=== PATIENT | male | born 1940 | race African-American/Black ===

== ENCOUNTER 2021-08-29 09:02 | Inpatient (IN) | payer OTHER ==
[~2021-08-29] VITALS: Ht 190.5 cm; Wt 91.9 kg
[2021-08-29 10:09] LABS: BASOPHILS % 0.3 % (0.0-2.0); EOSINOPHILS % 0.4 % (0.0-5.0); HEMATOCRIT. 41.6 % (42.0-52.0); HEMOGLOBIN. 14.2 g/dL (14.0-18.0); LYMPHOCYTES % 9.1 % (20.0-50.0); MEAN CORPUSCULAR HEMOGLOBIN 30.2 pg (28.0-32.0); MEAN CORPUSCULAR VOLUME 88.6 fL (80.0-94.0); MEAN PLATELET VOLUME 8.7 fl (7.4-10.4); MONOCYTES % 11.4 % (2.0-8.0); NEUTROPHILS % 78.8 % (40.0-76.0); PLATELET 187 x1000/uL (130-400); RED CELL DISTRIBUTION WIDTH 16.2 % (11.6-14.6)
[2021-08-29 10:17] LABS: CHLORIDE 97 mEq/L (98-107)
[2021-08-29 10:29] LABS: ETHANOL BLOOD < 10 mg/dL
[2021-08-29 10:37] LABS: CLARITY URINE CLEAR (CLEAR); COLOR URINE YELLOW (YELLOW); KETONES URINE NEGATIVE (NEGATIVE); LEUKOCYTE ESTERASE URINE 2+ (NEGATIVE); NITRITE URINE POSITIVE (NEGATIVE); OCCULT BLOOD URINE TRACE (NEGATIVE); PROTEIN URINE NEGATIVE (NEGATIVE); SPECIFIC GRAVITY URINE 1.027 (1.005-1.030); UROBILINOGEN URINE 0.2 E.U./dL (0.2-1.0)
[2021-08-29 10:59] LABS: *AMPHETAMINES SCREEN URINE NEGATIVE (NEGATIVE); *BARBITURATES SCREEN URINE NEGATIVE (NEGATIVE); *BENZODIAZEPINES SCREEN URINE NEGATIVE (NEGATIVE); *COCAINE SCREEN URINE NEGATIVE (NEGATIVE); CANNABINOID URINE SCREEN NEGATIVE (NEGATIVE); METHADONE URINE SCREEN NEGATIVE (NEGATIVE); OPIATES URINE SCREEN NEGATIVE (NEGATIVE); PHENCYCLIDINE URINE SCREEN NEGATIVE (NEGATIVE)
[2021-08-29] MEDS ORDERED: LEVOFLOXACIN 750MG PREMIX 150 ML IV ONE (11:00)
[2021-08-29 11:05] LABS: INR 1.1; PROTHROMBIN TIME 11.6 sec (9.6-11.0)
[2021-08-29] MEDS ORDERED: CLONIDINE 0.1MG TABLET PO PRN (13:15)
[2021-08-29] MEDS ORDERED: GUAIFENESIN 200MG/10ML SUGAR FREE UDC PO PRN (13:15)
[2021-08-29] MEDS ORDERED: ONDANSETRON HCL 4MG/2ML INJ IV PRN (13:15)
[2021-08-29] MEDS ORDERED: ACETAMINOPHEN 325MG TABLET PO PRN (13:15)
[2021-08-29] MEDS ORDERED: MAGNESIUM/ALUMINUM HYDROXIDE/SIMETHICONE 30ML UDC PO PRN (13:15)
[2021-08-29] MEDS ORDERED: DOCUSATE SODIUM 100MG CAPSULE PO PRN (13:15)
[2021-08-29] MEDS ORDERED: HYDROCODONE/ACETAMINOPHEN 5/325MG TABLET PO PRN (13:15)
[2021-08-29 14:00] VITALS: BP 143/70
[2021-08-29] MEDS ORDERED: CEFTRIAXONE 1 G PREMIX 50 ML IV SCH (14:00)
[2021-08-29] MEDS ORDERED: ALLO100T PO (15:09)
[2021-08-29] MEDS ORDERED: LISI20TA31 PO (15:09)
[2021-08-29] MEDS ORDERED: CRES10 PO (15:09)
[2021-08-29] MEDS ORDERED: DABI110C PO (15:09)
[2021-08-29] MEDS ORDERED: CARV3.1242 PO (15:09)
[2021-08-29] MEDS ORDERED: OXYC1TAB5 PO (15:09)
[2021-08-29] MEDS ORDERED: TRAM50TA3 PO (15:09)
[2021-08-29 15:45] VITALS: BP 143/70
[2021-08-29] MEDS: AMLODIPINE 10MG TABLET PO SCH (16:33)
[2021-08-29] MEDS: ENOXAPARIN 40MG/0.4ML SYR SUBCUT SCH (16:33)
[2021-08-29] MEDS: CLOPIDOGREL 75MG TABLET PO SCH (16:34)
[2021-08-29] MEDS: TRAMADOL 50MG TABLET PO PRN (17:08)
[2021-08-29] MEDS ORDERED: NALOXONE HCL 0.4MG/ML VIAL IV PRN (20:00)
[2021-08-29 20:03] VITALS: BP 115/66
[2021-08-30] VITALS (9 sets, daily range): BP systolic 95–127; BP diastolic 54–76
[2021-08-30 06:26] LABS: BASOPHILS % 0.2 % (0.0-2.0); EOSINOPHILS % 0.8 % (0.0-5.0); HEMATOCRIT. 40.1 % (42.0-52.0); HEMOGLOBIN. 13.8 g/dL (14.0-18.0); LYMPHOCYTES % 19.1 % (20.0-50.0); MEAN CORPUSCULAR HEMOGLOBIN 30.3 pg (28.0-32.0); MEAN CORPUSCULAR VOLUME 88.3 fL (80.0-94.0); MONOCYTES % 11.3 % (2.0-8.0); NEUTROPHILS % 68.6 % (40.0-76.0); PLATELET 179 x1000/uL (130-400); RED BLOOD CELL COUNT 4.55 mill/uL (4.7-6.1); RED CELL DISTRIBUTION WIDTH 15.6 % (11.6-14.6)
[2021-08-30 06:33] LABS: CHLORIDE 97 mEq/L (98-107)
[2021-08-30] MEDS: AMLODIPINE 10MG TABLET PO SCH (08:18)
[2021-08-30] MEDS: CLOPIDOGREL 75MG TABLET PO SCH (08:39)
[2021-08-30] MEDS ORDERED: ASPIRIN 81MG TABLET PO SCH (11:45)
[2021-08-30] MEDS ORDERED: CEFTRIAXONE 1,000 MG in DEXTROSE 5% WATER 50 ML IV SCH (14:00)
[2021-08-30] MEDS: ENOXAPARIN 40MG/0.4ML SYR SUBCUT SCH (15:12)
[2021-08-30] MEDS: TRAMADOL 50MG TABLET PO PRN (20:36)
[2021-08-30] MEDS ORDERED: ATORVASTATIN CALCIUM 20MG TABLET PO SCH (21:00)
== END 2021-08-30 21:40 | disposition short-term general hospital (02) | DRG 64 ==
LOC: EDBD 09:42 → ER 09:42 → 7EST 10:55 → EDBEDREQ 11:09 → ENRESERV 11:45
PROVIDERS: ADMIT Hospitalist; ATTEND Hospitalist
DX: I63.9 Cerebral infarction, unspecified (principal); G93.41 Metabolic encephalopathy; J98.11 Atelectasis; N39.0 Urinary tract infection, site not specified; R29.1 Meningismus; R26.89 Other abnormalities of gait and mobility; Z20.822 Contact with and (suspected) exposure to COVID-19; E11.9 Type 2 diabetes mellitus without complications; I10 Essential (primary) hypertension; I25.10 Atherosclerotic heart disease of native coronary artery without angina pectoris; Z86.73 Personal history of transient ischemic attack (TIA), and cerebral infarction without residual deficits
CPT/HCPCS: 36415; 70496; 70498; 71045; 80053; 80061; 80305; 80320; 81003; 82962; 83605; 84484; 85025; 87077; 87186; 87426; 93005; 93970; 99291; J0696; J1650; J1956; J7060; G0480